=== PATIENT | female | born 1985 | race African-American/Black ===

== ENCOUNTER 2025-05-19 12:44 | Emergency (ER) | payer BC, OTHER ==
[2025-05-19] MEDS ORDERED: Acetaminophen 325 MG TAB ONE (14:09)
== END 2025-05-19 14:24 | disposition home or self-care (01) ==
LOC: NAV ERS 12:44
DX: S67.192A Crushing injury of right middle finger, initial encounter (principal); S62.632A Displaced fracture of distal phalanx of right middle finger, initial encounter for closed fracture; W23.0XXA Caught, crushed, jammed, or pinched between moving objects, initial encounter
CPT/HCPCS: 90715